=== PATIENT | female | born 2000 | race Two or more races ===

== ENCOUNTER 2019-08-01 03:52 | Emergency (ER) | payer OTHER ==
[~2019-08-01] VITALS: Ht 160 cm; Wt 70.8 kg
== END 2019-08-01 06:03 | disposition home or self-care (01) ==
LOC: ER 03:52
DX: J03.80 Acute tonsillitis due to other specified organisms (principal)

== ENCOUNTER 2019-09-19 22:52 | Emergency (ER) | payer OTHER ==
[~2019-09-19] VITALS: Ht 160 cm; Wt 68.9 kg
[2019-09-20] MEDS ORDERED: ORASEP SPRAY30 ML MM (05:37)
== END 2019-09-20 05:43 | disposition home or self-care (01) ==
LOC: ER 22:52
DX: B27.80 Other infectious mononucleosis without complication (principal); R16.1 Splenomegaly, not elsewhere classified

== ENCOUNTER 2023-04-02 17:23 | Emergency (ER) | payer OTHER ==
[~2023-04-02] VITALS: Ht 160 cm; Wt 77.1 kg
[~2023-04-02 17:23] MED LIST: ORASEP SPRAY30 ML MM
== END 2023-04-02 18:57 | disposition home or self-care (01) ==
LOC: ER 17:23
DX: J02.0 Streptococcal pharyngitis (principal)

== ENCOUNTER 2023-04-07 19:27 | Emergency (ER) | payer OTHER ==
[~2023-04-07] VITALS: Ht 160 cm; Wt 77.1 kg
== END 2023-04-07 22:57 | disposition home or self-care (01) ==
LOC: ER 19:27
DX: J03.90 Acute tonsillitis, unspecified (principal); R59.1 Generalized enlarged lymph nodes

== ENCOUNTER 2023-04-18 11:14 | Emergency (ER) | payer OTHER ==
[~2023-04-18] VITALS: Ht 160 cm; Wt 77.1 kg
== END 2023-04-18 13:39 | disposition home or self-care (01) ==
LOC: ER 11:14
DX: J03.90 Acute tonsillitis, unspecified (principal)